=== PATIENT | male | born 1970 | race African-American/Black ===

== ENCOUNTER 2021-01-27 05:48 | Day surgery (SDC) | payer MEDICAID ==
[~2021-01-27] VITALS: Ht 185.4 cm; Wt 73.2 kg
[2021-01-27 06:19] LABS: ANION GAP 14.4 mmol/L (8-16); CALCIUM 9.6 mg/dL (8.5-10.1); CARBON DIOXIDE 27.5 mmol/L (21.0-32.0); CREATININE - SERUM 11.1 mg/dL (0.6-1.3); POTASSIUM - SERUM 3.9 mmol/L (3.5-5.1)
[2021-01-27 06:21] LABS: INR 1.1 (0.85-1.17); PROTIME 13.2 SECONDS (11.6-15.0)
[2021-01-27 06:28] LABS: HEMATOCRIT 34.9 % (42.0-54.0); LYMPHOCYTE ABS# 3.92 10x3/uL (1.32-3.57); MCH 26.6 pg (26.0-34.0); MCHC 31.5 g/dL (31.0-37.0); MCV 84.3 fL (80.0-100.0); MEAN PLATELET VOLUME 9.1 fL (7.4-10.4); PLATELET COUNT 219 10x3/uL (130-400); RBC 4.14 10x6/uL (4.20-6.10); RDW 14.6 % (11.5-14.5); WBC 7.7 10x3/uL (4.8-10.8)
[2021-01-27] MEDS ORDERED: LISINOPRIL20 MG PO (07:03)
[2021-01-27] MEDS ORDERED: ROCALTROL0.25 MCG PO (07:03)
[2021-01-27] MEDS ORDERED: COREG12.5 MG PO (07:04)
[2021-01-27 07:12] VITALS: BP 85/53; Ht 185.4 cm; Wt 73.2 kg
--- NOTE | 2021-01-27 10:01 | NUR ---
PATIENT ARRIVED TO OR #4 WITH EARRINGS X 2 IN LEFT LOWER LOBE. ONE EARRING SUCCESFULLY REMOVED AND TAPED TO FRONT OF PATIENT CHART. THE OTHER EARRING WAS UNABLE TO BE REMOVED. TAPE PLACED OVER EARRING. NOTED, MALLORY CHOWDARY
--- NOTE | 2021-01-27 11:32 | NUR ---
CALLED [facility] AT THIS TIME, PT GAVE NUMBER HIS DIALYSIS UNIT CONTACT NUMBER. INFORMED FINA TEJADA OF DR SANCHEZ ORDER TO HOLD PROCARDIA AND NEW RX OF MIDODRINE.
--- NOTE | 2021-01-27 11:36 | NUR ---
CALLED IN PRESCRIPTION FOR MIDODRINE 10 MG PO TID, PER DR. MICHEL.
--- NOTE | 2021-01-27 12:28 | NUR ---
DC INSTRUCTIONS GIVEN TO PT. STATES UNDERSTANDING. DC'D IV CATH FULLY INTACT. WILL DC SHORTLY.
--- NOTE | 2021-01-27 12:32 | NUR ---
PT'S DAUGHTER WILL BE HERE TO LABEL CUTTER PT AT [phone]
[2021-01-27 13:11] LABS: EOSINOPHILS 3 % (0-7); LYMPHOCYTES 45 % (15-50); MONOCYTES 9 % (2-11); NEUTROPHILS 43 % (40-80)
[2021-01-27 13:12] LABS: ANISOCYTOSIS OCC; PLATELET ESTIMATE NORMAL
--- NOTE | 2021-01-27 13:41 | NUR ---
PT LEFT UNIT VIA WC AT 1341
--- NOTE | 2021-02-05 10:01 | OP ---
PATIENT NAME: DILAN VIZCARRA MEDICAL RECORD: [id number] LOCATION:D.OPS ADMISSION DATE: SURGEON: ELEANOR MICHEL MD DATE OF OPERATION: 01/27/2021 REFERRING PHYSICIAN: Dr. Kilpatrick of [place], [place]. PREOPERATIVE DIAGNOSES: End-stage renal disease and dependence on hemodialysis. POSTOPERATIVE DIAGNOSES: End-stage renal disease and dependence on hemodialysis. OPERATION PERFORMED: Creation of a right wrist Moe AV fistula. SURGEON: Eleanor Michel MD ANESTHESIA: Regional nerve block and MAC per [employer]IV[employer] SALES COUNSELOR. PREOPERATIVE NOTE: Mr. Vizcarra is a 50-year-old -Stateless male with end-stage renal disease, on dialysis with a catheter. He has a problem with chronic hypotension, although his renal failure was due to hypertension. He was brought to the operating room at this time to create a fistula. Under nerve block, the patient was placed in supine position and the right arm abducted and prepped and draped in a sterile manner. Nitroglycerin ointment was applied to the skin of the arm and forearm and a Broadway drain was used as a tourniquet. I then examined the superficial veins with duplex ultrasound and confirmed that he has an excellent cephalic vein patent from the wrist to the antecubital level and in fact had a number of healthy veins to choose from. The radial artery was of good size and was not calcified and I elected to go ahead with a right wrist Moe-type radiocephalic fistula. A longitudinal incision was made and hemostasis obtained with electrocautery. Superficial nerves were protected and the radial artery and the cephalic vein were exposed and dissected from the surrounding tissues. The artery was controlled and retracted and occluded as needed with doubly looped Silastic tapes. The vein was mobilized and then distally it was ligated and divided and bevelled. It was flushed and dilated with heparinized saline and prepared for anastomosis. An atraumatic vascular clamp was used to prevent backbleeding. The artery was opened approximately 5 mm with an 11 blade and then micro Bhakta scissors. The artery was flushed proximally and distally with heparinized saline and then an end-to-side, end of vein to side of artery anastomosis was performed with running 7-0 Prolene. When completed, the occluding loops and clamps were released. Excellent flow developed immediately within the new fistula. This was manifested by excellent palpable thrill and pulsation and continuous pulsatile Doppler flow with a handheld Doppler device. Hemostasis was achieved with minimal additional use of electrocautery and some fibrillar oxidized cellulose along the suture line. The wound was irrigated with saline and then closed with interrupted inverted 3-0 Vicryl and running intracuticular 4-0 Monocryl and Dermabond glue. It was dressed with Cavilon skin prep and Tegaderm. The patient was awakened from his sedation and taken back to the outpatient department in stable condition. This patient was hypotensive during the operation and hypotensive preop as well. I will for now recommend that we discontinue Procardia and start him on OPERATIVE REPORT [id number] DILAN VIZCARRA midodrine 10 mg t.i.d. He will go to dialysis tomorrow in [place] and Dr. Kilpatrick and the nurses there can evaluate his status and make decisions regarding additional medication changes, if any. I will have him come back to see me in 2 weeks and until then continue the same dialysis schedule and renal diet and to resume normal activities as tolerated, though he is to keep the operative dressing dry and the site clean. I will plan to remove the dressing when he sees me in the office. TRANSINT:[id number] Voice Confirmation ID: [id number] DOCUMENT ID: [id number] ELEANOR MICHEL MD at 1001 CC: [id number] DICTATION DATE: 02/04/21 1524 BE[facility] FORMING MACHINE SET UP OPERATOR: 02/05/21 0010 [facility] 01/27/21 [place] [id number] [place] [id number]
== END 2021-01-27 13:41 | disposition home or self-care (01) ==
LOC: D.OPS 05:48
PROVIDERS: ATTEND Surgery
DX: N18.6 End stage renal disease (principal); Z99.2 Dependence on renal dialysis; I10 Essential (primary) hypertension